=== PATIENT | female | born 1985 | race Caucasian/White ===

== ENCOUNTER → 2022-09-10 14:40 | Outpatient (BNVA) | payer OTHER, SELFPAY | PROVIDERS: PCP Internal Medicine; Referring Provider Internal Medicine; Visit Provider Surgery | DX: Z13.89 Encounter for screening for other disorder (principal) ==

== ENCOUNTER 2022-10-08 15:11 | Outpatient (REF) | payer OTHER, SELFPAY ==
--- NOTE | ~2022-10-08 | CT_ITS ---
EXAMINATION: CT ABDOMEN AND PELVIS WITHOUT CONTRAST CLINICAL INFORMATION: Abdominal hernia without obstruction or gangrene COMPARISON: Previous CT April 2007 TECHNIQUE: Multidetector volumetric imaging was performed from the superior aspect of the liver through the pubic symphysis. Sagittal and coronal reformatted images were obtained on the technologist's workstation. This CT examination was performed using dose optimization techniques as appropriate, variously including the following: *Automated exposure control *Adjustment of mA and/or kV according to patient size (this includes techniques or standardized protocols for targeted exams where dose is matched to indication/reason for exam; i.e. extremities or head) *Use of iterative reconstruction technique DLP: 585 mGy-cm FINDINGS: LUNG BASES: The visualized lung bases are unremarkable. LIVER, GALLBLADDER, AND BILIARY TREE: The liver is normal in size, shape, and attenuation. No focal hepatic lesion or biliary ductal dilatation is present. The gallbladder is unremarkable with no evidence of radiopaque gallstones, gallbladder wall thickening, or obvious pericholecystic inflammatory changes. PANCREAS: Unremarkable. SPLEEN: Unremarkable. ADRENAL GLANDS: Unremarkable. KIDNEYS AND URETERS: The kidneys are normal in size, shape, and attenuation. No hydronephrosis, hydroureter, or calculi seen. No perinephric stranding. BLADDER: Unremarkable. GASTROINTESTINAL TRACT: Mild diverticulosis of the colon. High position of the cecum. The small and large bowel are otherwise unremarkable. The appendix is unremarkable. ABDOMINAL WALL: Umbilical hernia containing fat measuring 4.6 x 3.2 x 2.5 cm in dimension. There is a more superior supraumbilical hernia containing fat measuring 5.2 x 3.5 x 4 cm in sagittal AP and transverse dimension. This is 4 cm above the umbilicus.. LYMPH NODES: Normal. VASCULAR: Unremarkable. PELVIC VISCERA: Unremarkable. OSSEOUS STRUCTURES: Unremarkable. CT/CT abdomen pelvis wo IV con IMPRESSION: Umbilical and supraumbilical hernias containing fat. Fleischner guidelines were followed.
== END 2022-10-08 15:12 | disposition home or self-care (01) ==
LOC: HO.CT 15:11
PROVIDERS: PCP Internal Medicine; Visit Provider Surgery
DX: K46.9 Unspecified abdominal hernia without obstruction or gangrene (principal)
CPT/HCPCS: 74176

== ENCOUNTER → 2022-10-16 10:48 | Outpatient (BNVA) | payer OTHER, SELFPAY | PROVIDERS: PCP Internal Medicine; Referring Provider Internal Medicine; Visit Provider Surgery | DX: Z13.89 Encounter for screening for other disorder (principal) ==

== ENCOUNTER 2022-10-21 07:04 | Day surgery (SDC) | payer OTHER, SELFPAY ==
[2022-10-15 15:54] VITALS: BMI 79.1
[2022-10-16 13:59] VITALS: BMI 34.0
--- NOTE | 2022-10-17 09:28 | P.CONAN_ITS ---
Documented by User: Elizabeth Dumas NP 10/17/22 09:29 HPI - Anesthesia Eval Consult details Narrative: 37yo F for Hernia Repair Umbilical with possible mesh, Hernia Repair Epigastric with possible mesh PMFSH Active Problems Active Problems: All Active Problems (Updated 10/16/22 @ 14:02 by Araceli Brink, LYNNETTE) Abdominal hernia (Acute) Past Medical History Medical History (Updated 10/16/22 @ 14:02 by Araceli Brink RN) Abdominal hernia Seasonal allergies Surgical History Surgical History (Updated 10/16/22 @ 14:01 by Araceli Brink RN) History of bilateral breast reduction surgery Social History Social History (Updated 10/16/22 @ 14:02 by Araceli Brink, RN) 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) Do you presently have visiting nurse or other home services: No Alcohol intake: never Patient Tobacco Use Status: Never used Tobacco Meds Allergies Allergy/AdvReac Type Severity Reaction Status Date / Time metoclopramide [From Reglan] AdvReac Intermediate ANXIETY Unverified 10/16/22 10:55 Home Medications Medication Instructions Recorded Confirmed Last Taken Type cetirizine 10 mg capsule (Zyrtec) 10 mg PO DAILY PRN Allergy Symptoms 10/16/22 10/16/22 Unknown History Exam Exam Date and Time: October 17, [id number] Height,Weight and Vital Signs: Height 5 ft 1 in Weight 81.647 kg Assessment and Plan Assessment Anesthesia Assessment: Chart Reviewed Documented by User: Akin Love MD 10/21/22 16:46 PMFSH Past Medical History Medical History (Updated 10/16/22 @ 14:02 by Araceli Brink RN) Abdominal hernia Seasonal allergies Functional capacity: independent ambulation Family History Family history of problems with anesthesia: No Surgical History Surgical History (Updated 10/16/22 @ 14:01 by Araceli Brink RN) History of bilateral breast reduction surgery History of Problems with Anesthesia: No Social History Social History (Updated 10/16/22 @ 14:02 by Araceli Brink RN) 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) Do you presently have visiting nurse or other home services: No Alcohol intake: never Patient Tobacco Use Status: Never used Tobacco Meds Allergies Allergy/AdvReac Type Severity Reaction Status Date / Time metoclopramide [From Reglan] AdvReac Intermediate ANXIETY Unverified 10/16/22 10:55 Home Medications Medication Instructions Recorded Confirmed Last Taken Type cetirizine 10 mg capsule (Zyrtec) 10 mg PO DAILY PRN Allergy Symptoms 10/16/22 10/16/22 Unknown History Exam Airway Mallampati Class: III TM Dist: >3cm Neck ROM: Full Loose/Missing/Broken Teeth: Yes (fillings , tongue has a small lesion(had a prior piercing as per patient) ) Assessment and Plan Assessment Anesthesia Assessment: Anesthesia Plan Discussed Final Anesthetic Review Family History of Problems with Anesthesia: No History of Problems with Anesthesia: No NPO: Yes ASA Class: II Final Preanesthetic Review: Meds/Allgs Chart Reviewed, Consent Obtained/Reviewed and Anes Risks/Benef Reviewed Patient Risk: Intermediate Procedure Risk: Intermediate Anesthetic Plan Anesthetic Plan: GA and Agree w/ Assess. and Plan Disposition: Standard PACU
[2022-10-21] VITALS (9 sets, daily range): BP systolic 122–146; BP diastolic 80–90; PULSE 52–96; RESP 16–18; TEMP 36.1–37.4; O2SAT 98–100; BMI 34.0
[2022-10-21 07:35] LABS: UPreg QC Valid YES; Urine Pregnancy NEGATIVE (NEGATIVE)
[2022-10-21] MEDS: Lactated Ringers 1,000 ML 100 ML IVCONT (07:50)
--- NOTE | 2022-10-21 08:22 | MHC.SHP ---
Pre-Procedural Eval Section A Date of Service: 10/21/22 The patient is an INPATIENT: No Changes since office visit: No Cold of Flu in the past 2 weeks, No New Medical Problems, No Changes in Medication and No Patient answered all questions The History & Physical has been completed within 30 days and I have reviewed it.: Yes Section B Chief Complaint: Unspecified abdominal hernia without obstruction o Allergies: Allergies Allergy/AdvReac Type Severity Reaction Status Date / Time metoclopramide [From Reglan] AdvReac Intermediate ANXIETY Unverified 10/16/22 10:55 Plan I have reviewed the history and physical and performed a pertinent physical examination on my patient. No changes have occurred unless specified. Time Spent With Patient Time: Total time managing care of this patient today ____ minutes.
--- NOTE | 2022-10-21 09:35 | W.PM.OPN ---
Operative Note Operative Note Date of Service: 10/21/22 Narrative: Preop diagnosis: Umbilical hernia and epigastric hernia Postop diagnosis: The same Procedure: Repair of umbilical hernia with Ventralex mesh, repair of epigastric hernia with Ventralex mesh Surgeon: Ankush Capellan MD parking assistant: JP Amaya The patient is a 37-year-old female with an epigastric hernia, about 2 cm in diameter, as well as an umbilical hernia, also about 2 cm in diameter. Both were fat containing on CT scan. She understood the technique of repair with mesh. She was aware of the risks, benefits, and alternatives. She was brought to the operating room. She was placed supine under general anesthesia via laryngeal mask airway. The abdomen was prepped and draped in the usual sterile fashion. A surgical time-out was done. The patient received cefazolin 2 g IV preoperatively. I infiltrated my planned line of incision in the infraumbilical area. An infraumbilical transverse curvilinear incision using blade 15. This carried down with electrocautery through the full-thickness of the skin subcutaneous fat. I lifted the umbilicus as a flap to expose the entire hernia which was fat containing. I sharply dissected the hernia sac down to the fascial edge until this clearly defined. I did sharp dissection of the sac at the fascial edge using above scissors as well as electrocautery release this and by doing so, I was able to reduce the entire hernia through the defect. There were no bowel loops near the area. Again the defect was about 2 cm in diameter. The margins on the underside of the fascia were clear. I therefore used a small sized Ventralex mesh and position this under the peritoneum. This was flattened. I secured the Prolene straps of the mesh to the fascial edge with Prolene 2 sutures. I closed the fascial defect with a [id number] Maxon 1 stitch. I then proceeded to do the repair of the epigastric hernia. I infiltrated this area with lidocaine 1%. I made an incision on the skin longitudinally using a blade 15. This was carried down with electrocautery through the full-thickness of the skin and subcutaneous fat until the hernia was visualized. I sharply dissected the hernia down to the fascia. I defined the fascial edge by carefully dissecting the adhesions to the hernia sac using Metzenbaum scissors as well as electrocautery. I was able to therefore reduce the entire hernia which was all fat. The underside was clear as well around the margins. The fascial defect was about 2 cm in diameter. I used a small-sized Ventralex mesh. This was flattened under the fascia in the peritoneum. I secured the Prolene straps of the mesh with the Prolene 2-0 stitch to the fascia. The fascial straps were trimmed. I closed the defect with a [id number] Maxon 1 stitch. The subcutaneous layer on both incisions were reapposed with Dexon 3-0 interrupted sutures. Skin closure was achieved with Dexon 4-0 subcuticular running stitch. The incisions were infiltrated with Marcaine 0.5% for postop analgesia. The procedure was completed. The patient tolerated procedure well. There were no immediate complications. Initial and final counts of sponges and instruments were correct. Estimated blood loss was less than 5 cc The patient was extubated without difficulty and transferred to the recovery room with stable vital signs.
[2022-10-21] MEDS: oxyCODONE HCl Immed Release 5 MG TABLET PO (10:25)
[2022-10-21] MEDS: Acetaminophen 325 MG TABLET 650 MG PO (10:25)
[2022-10-21] MEDS: fentaNYL citrate/PF 100 MCG/2 ML VIAL 50 MCG IVPUSH (10:25)
== END 2022-10-21 11:54 | disposition home or self-care (01) ==
PROVIDERS: Nurse Practitioner; PCP Internal Medicine; Visit Provider Surgery
PROC: (CPT 49593; principal; 2022-10-21 08:40)
PROC: (CPT 49593; 2022-10-21 08:40)
DX: K42.9 Umbilical hernia without obstruction or gangrene (principal); K43.9 Ventral hernia without obstruction or gangrene; J30.2 Other seasonal allergic rhinitis; Z79.51 Long term (current) use of inhaled steroids; Z88.8 Allergy status to other drugs, medicaments and biological substances; Z98.890 Other specified postprocedural states
CPT/HCPCS: 49593; 81025; C1781; J0690; J1885; J2250; J3010